=== PATIENT | male | born 1980 | race Caucasian/White ===

== ENCOUNTER 2023-04-07 11:24 | Emergency (ER) | payer BC ==
[~2023-04-07] VITALS: Ht 180.3 cm; Wt 75.0 kg
[2023-04-07 11:26] VITALS: BP 140/87
[2023-04-07] MEDS ORDERED: bacitracin 15gm ointment TP ONE (11:40)
[2023-04-07] MEDS ORDERED: cephalexin 250mg capsule PO ONE (11:40)
[2023-04-07] MEDS ORDERED: TETanus/Pertussis (Acell)/Diphther VAC/PF (Tdap-Adult) 0.5ml syringe IMVAC ONE (11:40)
[2023-04-07] MEDS ORDERED: LIDOcaine 1% W/epiNEPHrine 1:100,000 20ml vial IJ ONE (11:40)
[2023-04-07] MEDS ORDERED: CEPH-585 PO (11:51)
== END 2023-04-07 11:55 | disposition home or self-care (01) ==
LOC: ER 11:25
DX: S00.85XA Superficial foreign body of other part of head, initial encounter (principal); X58.XXXA Exposure to other specified factors, initial encounter; Y93.89 Activity, other specified; Y92.89 Other specified places as the place of occurrence of the external cause; Y99.8 Other external cause status
CPT/HCPCS: 90471; 90715; 99284; A6449